=== PATIENT | female | born 1970 | race Two or more races ===

== ENCOUNTER 2016-07-15 10:18 | Emergency (ER) | payer OTHER ==
[2016-07-15 10:35] VITALS: BP 164/84
[2016-07-15] MEDS ORDERED: Ondansetron ODT TAB* 4 MG PO ONE (11:15)
--- NOTE | 2016-07-15 13:24 | UC ---
Patsy Morales Rebecca, scribed for Juliet Curry MD on 07/15/16 at 1042 . Back Pain HPI - HPI Summary HPI Summary: Pt is a 45 y/o F who presents to [facility] c/o back pain. Pain began suddenly this morning upon waking up and has been constant since onset. Pain is in the R flank with radiation to the pelvic region. Sx are currently severe, ranked 8/10 and characterized as sharp stabbing and spasmodic pain. Sx aggravated by position change and standing, alleviated by nothing. Treated pain with Aleve ( vomited this morning) and 2 Gabapentin which have not changed sx. Has previously tried heating pads, ice and Henry, which did not alleviate sx. Additionally c/o vomiting (3x, secondary to pain), bilateral pedal tingling ( worse on the left), diaphoresis, increased urinary frequency and slight numbness in the inguinal region. Denies bladder or bowel incontinence. Denies fever, chills, rash, rhinorrhea or cough. PMHx herniated discs (2010) treated with [facility]. Current episode is similar to previous pain associated with herniated discs, but without anterior sciatic pain, present previously. PCP is Dr. Ames. Notes that 4 days ago she began using a CPAP machine and back pain seems to be related to increasing use of the machine. Recent respiratory virus that resolved 2 weeks ago. Allergy to codeine (hives). - History of Current Complaint Chief Complaint: UCBackPain Stated Complaint: ADB PAIN Time Seen by Provider: 07/15/16 10:30 Hx Obtained From: Patient Hx Last Menstrual Period: 07/13/16 Onset/Duration: Sudden Onset, Still Present Timing: Constant Severity Initially: Severe Severity Currently: Severe Pain Intensity: 8 Pain Scale Used: 0-10 Numeric Back Pain: Is Discrete @ - R flank, Radiates To - pelvis Character: Sharp, Spasmodic Aggravating: Movement Alleviating: Nothing Associated Signs And Symptoms: Positive: Numbness - Mild inguinal numbness, Tingling - Bilateral pedal tingling, Other - Vomiting (3x), diaphoresis, increased urinary frequency; Denies chills, rhinorrhea, rash, cough,. Negative : Fever, Bladder Incontinence, Bowel Incontinence Related History: Similar Episode Dx As - Herniated discs (2010) - Allergies/Home Medications Allergies/Adverse Reactions: Allergies Allergy/AdvReac Type Severity Reaction Status Date / Time Codeine Allergy Hives Verified 07/15/16 10:25 Home Medications: Home Medications Gabapentin CAP(*) [Neurontin 100 mg CAP(*)] 200 mg 07/15/16 [History] Naproxen Sodium-Diphenhydramin [Aleve Pm 220-25 mg] 07/15/16 [History] Venlafaxine CAP (NF) [Effexor CAP (NF)] 07/15/16 [History] PMH/Surg Hx/FS Hx/Imm Hx - Additional Past Medical History Additional PMH: 2 Herniated discs (2010) Cancer History Of: Denies: Breast Cancer - Surgical History Surgical History: None - Social History Alcohol Use: Occasionally Substance Use Type: None Smoking Status (MU): Light Every Day Tobacco Smoker Review of Systems Constitutional: Other - Diaphoresis Skin: Negative Eyes: Negative ENT: Negative Respiratory: Negative Cardiovascular: Negative Gastrointestinal: Vomiting - 3x Genitourinary: Frequency Motor: Negative Neurovascular: Negative Musculoskeletal: Arthralgia - see HPI Neurological: Numbness - Mild inguinal numbness, Other - Bilateral pedal tingling Psychological: Negative All Other Systems Reviewed And Are Negative: Yes - Comments Additional Review of Systems Comments: See HPI Physical Exam Triage Information Reviewed: Yes Appearance: Well-Nourished Vital Signs: Initial Vital Signs Temp 98.1 F 07/15/16 10:26 Pulse 78 07/15/16 10:26 Resp 18 07/15/16 10:26 BP 164/84 07/15/16 10:26 Pulse Ox 99 07/15/16 10:26 Vital Signs Reviewed: Yes Eye Exam: Normal ENT Exam: Normal Respiratory Exam: Normal Respiratory: Positive: Chest non-tender, Lungs clear, Normal breath sounds, No respiratory distress, No accessory muscle use Cardiovascular Exam: Normal Cardiovascular: Positive: RRR, No Murmur, Pulses Normal, Brisk Capillary Refill Abdominal Exam: Normal Abdomen Description: Positive: Nontender, No Organomegaly, Soft Bowel Sounds: Positive: Present Musculoskeletal Exam: Normal Musculoskeletal: Positive: Strength Intact Neurological Exam: Normal - Nonfocal, grossly intact Psychological Exam: Normal - COnversing easily and appropriately Skin Exam: Normal Skin: Negative: rashes Back Pain Course/Dx - Course Course Of Treatment: Pain progressively worse during the course of her time in the [facility]. Unable to sit or lie down 2/2 pain. Pain is radiating to perineum, dysesthetic vaginal area, subj ok perianal. No b/b leak. Pt attempted to stand and pain suddenly worsened significantly. I spoke with Gideon Linares, [facility] (ED). At first Ms. Rahman was going to go to the ED via pov (friend), but after pain become completely debilitating, she wisely accepted the recommendation of EMS transport. Zofran ODT administered here x 1. [place] was planned, but then allergy (hives) to codeine was reviewed with pt - no known hx of whether or not opiates have resulted in problems. As such, in order to avoid an acute allergic reaction en route to ED, norco was held. EMS here and ready to go. Further analgesic can be considered in ED. Reviewed urine dip ( results available s/p pt's departure), this will be reviewed in ED. SG elevated , + blood (might be just finishing period (?) per pt) - see report for details. I have reviewed previous MRI report from May 2011 (in [facility]). MRI impression: L4-5 central disk herniation producing a severe central spinal canal stenosis with encroachment on the lateral recesses and compression of the L5 nerve roots. Considered multiple etiologies of acute back and abd pain. Include but not limited to: Herniated disc / disc compression. Renal etiology. Vacsular. Other. Questions answered to the best of my ability. - Differential Dx/Diagnosis Provider Diagnoses: Acute severe back and abd pain Discharge - Discharge Plan Condition: Guarded Disposition: TRANS HIGHER LVL OF CARE FAC Referrals: Som Ames MD [Primary Care Provider] - The documentation as recorded by the Patsy booth Rebecca accurately reflects the service I personally performed and the decisions made by me, Juliet Curry MD.
== END 2016-07-15 11:48 | disposition short-term general hospital (02) ==
LOC: UCEAST 10:18
DX: M54.9 Dorsalgia, unspecified (principal); R10.9 Unspecified abdominal pain; F17.210 Nicotine dependence, cigarettes, uncomplicated; Z88.5 Allergy status to narcotic agent
CPT/HCPCS: 81003; 84702; 99213; A9270-GY; G0463

== ENCOUNTER 2016-07-15 11:52 | Emergency (ER) | payer OTHER ==
[2016-07-15] MEDS ORDERED: Ketorolac INJ* 30 MG/ML 1 ML VIAL IV ONE (12:13)
[2016-07-15] MEDS ORDERED: NS 0.9% 1000 ML* 1,000 ML IV ONE ×2 (12:13→13:11)
[2016-07-15] MEDS ORDERED: Ondansetron INJ* 2 MG/ML VIAL IV ONE (12:13)
[2016-07-15 12:34] LABS: Hematocrit 40 % (35-47); Hemoglobin 13.2 g/dl (12.0-16.0); Mean Corpuscular HGB Conc 33 g/dl (31-36); Mean Corpuscular Hemoglobin 29 pg (27-31); Mean Corpuscular Volume 87 fL (80-97); Mean Platelet Volume 9 um3 (7.4-10.4); Red Blood Count 4.55 10^6/ul (4.0-5.4); Red Cell Distribution Width 13 % (10.5-15); White Blood Count 12.9 10^3/ul (3.5-10.8)
[2016-07-15 12:51] LABS: ALT 19 U/L (7-52); AST 14 U/L (13-39); Albumin 4.1 g/dL (3.2-5.2); Alkaline Phosphatase 52 U/L (34-104); Anion Gap 7 mmol/L (2-11); BUN/Creatinine Ratio 19.7 (8-20); Blood Urea Nitrogen 23 mg/dL (6-24); C Reactive Protein < 1.00 mg/L (< 5.00); CO2 Carbon Dioxide 25 mmol/L (22-32); Chloride 105 mmol/L (101-111); EGFR African American 63.8 (>60); EGFR Non-African American 49.6 (>60); Globulin 3.1 g/dL (2-4); Glucose 121 mg/dL (70-100); Lipase 29 U/L (11.0-82.0); Sodium 137 mmol/L (133-145); Total Protein 7.2 g/dL (6.4-8.9)
[2016-07-15] MEDS ORDERED: HYDROmorphone INJ* 1 MG/ML CARPUJECT SYRINGE IV ONE (13:10)
--- NOTE | 2016-07-15 14:29 | RAD ---
CLINICAL HISTORY: Right flank pain COMPARISON: None TECHNIQUE: Noncontrast CT examination of the abdomen and pelvis from the lung bases through the initial tuberosities. FINDINGS: VISUALIZED LUNG BASES: The visualized lung bases are grossly clear. There is no pleural effusion. ABDOMEN AND PELVIS: Evaluation of the solid organs and vasculature is limited without intravenous contrast. There is a small hiatal hernia. The liver, spleen, pancreas and adrenal glands are grossly normal in appearance. The gallbladder is normal. There is a nonobstructing punctate calcification at the mid-level left kidney (image 68). Otherwise the left kidney is normal in appearance without focal mass, calcification or signs of hydronephrosis. There is a moderate degree of right-sided hydroureter nephrosis with a mild degree of perinephric stranding. At the distal right ureter there is a 2 mm calcification (image 155). No calcifications are identified within the urinary bladder lumen. The small and large bowel are not distended.The patient's normal appendix is identified in the right lower quadrant measuring 6 mm in width with gas in the lumen (coronal image 62). There is no gross retroperitoneal or mesenteric lymphadenopathy. The pelvic viscera is normal in appearance. The abdominal aorta and iliac arteries are normal in course and diameter. Degenerative changes include multilevel loss of intervertebral disc height involving the lower thoracic and lumbar spine.There are no sinister bone lesions. IMPRESSION: 1. In the distal right ureter there is a 2 mm calcification just proximal to the ureterovesical junction with moderate ipsilateral hydroureter nephrosis and right perinephric stranding. 2. Additional chronic and degenerative changes noted in the body of the report unlikely to be directly related to the patient's current presentation.
[2016-07-15 14:37] LABS: Urine Bacteria 1+ (Absent); Urine Bilirubin Negative (Negative); Urine Glucose Negative (Negative); Urine Nitrite Negative (Negative)
[2016-07-15] MEDS ORDERED: Tamsulosin CAP* 0.4 MG PO ONE (15:04)
--- NOTE | 2016-07-15 15:05 | ED ---
Avery Morales Michael, scribed for Jodi Kate MD on 07/15/16 at 1225 . Back Pain - HPI Summary HPI Summary: 45 y/o female was referred to the ED by [facility] presenting with right back pain. The pt reports that she woke up with the pain this morning at 0730. She describes the pain as sharp and states the pain is a 7-9 out of 10 on a pain assessment scale. The pain is aggravated with movement. The pt also c/o right sided abd pain and 3 episodes of vomiting. She denies dysuria and a rash. The PMHx is significant for a herniated disk in 2011. - History of Current Complaint Chief Complaint: EDBackInjuryPain Stated Complaint: BACK PAIN Time Seen by Provider: 07/15/16 12:00 Hx Obtained From: Patient, EMS, Medical Records Hx Last Menstrual Period: 07/13/16 Onset/Duration: Sudden Onset, Still Present Onset/Duration: Started Hours Ago, Still Present Timing: Constant Back Pain Location: Is Discrete @ - right sided back pain Severity Initially: Moderate Severity Currently: Moderate Pain Intensity: 8 Pain Scale Used: 0-10 Numeric Character: Sharp Aggravating Symptom(s): Movement Alleviating Symptom(s): Nothing Associated Signs And Symptoms: Positive: Negative - rash and dysuria, Abdominal Pain, Other - back pain. vomiting. - Allergies/Home Medications Allergies/Adverse Reactions: Allergies Allergy/AdvReac Type Severity Reaction Status Date / Time Codeine Allergy Hives Verified 07/15/16 10:25 PMH/Surg Hx/FS Hx/Imm Hx Musculoskeletal History: Reports: Hx Back Problems - herniated disk - Cancer History Hx Chemotherapy: No Hx Radiation Therapy: No Infectious Disease History: No Infectious Disease History: Denies: Traveled Outside the [place] in Last 30 Days - Family History Known Family History: Positive: None Family History: no breast cancer - Social History Occupation: Student Lives: With Family Alcohol Use: Occasionally Substance Use Type: Reports: None Smoking Status (MU): Light Every Day Tobacco Smoker Review of Systems Negative: Fever Positive: Abdominal Pain, Vomiting Negative: dysuria Positive: Other - back pain Negative: Rash All Other Systems Reviewed And Are Negative: Yes Physical Exam Triage Information Reviewed: Yes Vital Signs On Initial Exam: Initial Vitals Temp Pulse Resp BP Pulse Ox 97.8 F 72 16 160/89 98 07/15/16 12:02 07/15/16 12:02 07/15/16 12:02 07/15/16 12:02 07/15/16 12:02 Vital Signs Reviewed: Yes Appearance: Positive: Well-Appearing, Pain Distress Skin: Positive: Warm, Skin Color Reflects Adequate Perfusion, Dry Eyes: Positive: EOMI, MARIO ENT: Positive: Pharynx normal, TMs normal Neck: Positive: Supple, Nontender Respiratory/Lung Sounds: Positive: Clear to Auscultation, Breath Sounds Present. Negative: Rales, Rhonchi, Wheezes Cardiovascular: Positive: RRR, Other - no gallops. Negative: Murmur, Rub Abdomen Description: Positive: Nontender - abd pain-diffuse, Soft, Other: - no rebound. Negative: Guarding Bowel Sounds: Positive: Present Musculoskeletal: Positive: Pain @ - right flank tenderness-mild. Negative: Edema Left, Edema Right Neurological: Positive: Sensory/Motor Intact, Alert, Oriented to Person Place, Time, CN Intact II-III Psychiatric: Positive: Affect/Mood Appropriate Diagnostics - Vital Signs Vital Signs Temp Pulse Resp BP Pulse Ox 07/15/16 12:02 97.8 F 72 16 160/89 98 - Laboratory Lab Results: Lab Results 07/15/16 07/15/16 07/15/16 Range/Units 12:20 12:20 12:20 WBC 12.9 H (3.5-10.8) 10^3/ul RBC 4.55 (4.0-5.4) 10^6/ul Hgb 13.2 (12.0-16.0) g/dl Hct 40 (35-47) % MCV 87 (80-97) fL MCH 29 (27-31) pg MCHC 33 (31-36) g/dl RDW 13 (10.5-15) % Plt Count 289 (150-450) 10^3/ul MPV 9 (7.4-10.4) um3 Neut % (Auto) 80.5 (38-83) % Lymph % (Auto) 12.8 L (25-47) % Pickett % (Auto) 5.5 (1-9) % Eos % (Auto) 0.7 (0-6) % Baso % (Auto) 0.5 (0-2) % Absolute Neuts (auto) 10.4 H (1.5-7.7) 10^3/ul Absolute Lymphs (auto) 1.7 (1.0-4.8) 10^3/ul Absolute Monos (auto) 0.7 (0-0.8) 10^3/ul Absolute Eos (auto) 0.1 (0-0.6) 10^3/ul Absolute Basos (auto) 0.1 (0-0.2) 10^3/ul Absolute Nucleated RBC 0.01 10^3/ul Nucleated RBC % 0.1 Sodium 137 (133-145) mmol/L Potassium 4.0 (3.5-5.0) mmol/L Chloride 105 (101-111) mmol/L Carbon Dioxide 25 (22-32) mmol/L Anion Gap 7 (2-11) mmol/L BUN 23 (6-24) mg/dL Creatinine 1.17 H (0.51-0.95) mg/dL Est GFR ( Amer) 63.8 (>60) Est GFR (Non-Af Amer) 49.6 (>60) BUN/Creatinine Ratio 19.7 (8-20) Glucose 121 H (70-100) mg/dL Lactic Acid 1.2 (0.5-2.0) mmol/L Calcium 9.0 (8.6-10.3) mg/dL Total Bilirubin 0.30 (0.2-1.0) mg/dL AST 14 (13-39) U/L ALT 19 (7-52) U/L Alkaline Phosphatase 52 (34-104) U/L C-Reactive Protein < 1.00 (< 5.00) mg/L Total Protein 7.2 (6.4-8.9) g/dL Albumin 4.1 (3.2-5.2) g/dL Globulin 3.1 (2-4) g/dL Albumin/Globulin Ratio 1.3 (1-3) Lipase 29 (11.0-82.0) U/L Beta HCG, Quant 0.92 mIU/mL Urine Color Urine Appearance Urine pH (5-9) Ur Specific [place] (1.010-1.030) Urine Protein (Negative) Urine Ketones (Negative) Urine Blood (Negative) Urine Nitrate (Negative) Urine Bilirubin (Negative) Urine Urobilinogen (Negative) Ur Leukocyte Esterase (Negative) Urine WBC (Auto) (Absent) Urine RBC (Auto) (Absent) Ur Squamous Epith Cells (Absent) Urine Bacteria (Absent) Urine Glucose (Negative) 07/15/16 Range/Units 14:12 WBC (3.5-10.8) 10^3/ul RBC (4.0-5.4) 10^6/ul Hgb (12.0-16.0) g/dl Hct (35-47) % MCV (80-97) fL MCH (27-31) pg MCHC (31-36) g/dl RDW (10.5-15) % Plt Count (150-450) 10^3/ul MPV (7.4-10.4) um3 Neut % (Auto) (38-83) % Lymph % (Auto) (25-47) % Pickett % (Auto) (1-9) % Eos % (Auto) (0-6) % Baso % (Auto) (0-2) % Absolute Neuts (auto) (1.5-7.7) 10^3/ul Absolute Lymphs (auto) (1.0-4.8) 10^3/ul Absolute Monos (auto) (0-0.8) 10^3/ul Absolute Eos (auto) (0-0.6) 10^3/ul Absolute Basos (auto) (0-0.2) 10^3/ul Absolute Nucleated RBC 10^3/ul Nucleated RBC % Sodium (133-145) mmol/L Potassium (3.5-5.0) mmol/L Chloride (101-111) mmol/L Carbon Dioxide (22-32) mmol/L Anion Gap (2-11) mmol/L BUN (6-24) mg/dL Creatinine (0.51-0.95) mg/dL Est GFR ( Amer) (>60) Est GFR (Non-Af Amer) (>60) BUN/Creatinine Ratio (8-20) Glucose (70-100) mg/dL Lactic Acid (0.5-2.0) mmol/L Calcium (8.6-10.3) mg/dL Total Bilirubin (0.2-1.0) mg/dL AST (13-39) U/L ALT (7-52) U/L Alkaline Phosphatase (34-104) U/L C-Reactive Protein (< 5.00) mg/L Total Protein (6.4-8.9) g/dL Albumin (3.2-5.2) g/dL Globulin (2-4) g/dL Albumin/Globulin Ratio (1-3) Lipase (11.0-82.0) U/L Beta HCG, Quant mIU/mL Urine Color Yellow Urine Appearance Cloudy Urine pH 5.0 (5-9) Ur Specific [place] 1.025 (1.010-1.030) Urine Protein Negative (Negative) Urine Ketones Negative (Negative) Urine Blood 3+ H (Negative) Urine Nitrate Negative (Negative) Urine Bilirubin Negative (Negative) Urine Urobilinogen Negative (Negative) Ur Leukocyte Esterase Negative (Negative) Urine WBC (Auto) Absent (Absent) Urine RBC (Auto) 2+(6-10/hpf) H (Absent) Ur Squamous Epith Cells Present H (Absent) Urine Bacteria 1+ H (Absent) Urine Glucose Negative (Negative) Result Diagrams: 07/15/16 12:20 07/15/16 12:20 Lab Statement: Any lab studies that have been ordered have been reviewed, and results considered in the medical decision making process. - CT CT ABD/PEL CT Interpretation: Positive (See Comments) - In the distal right ureter there is a 2 mm calcification just proximal to the ureterovesical junction with moderate ipsilateral hydroureter nephrosis and right perinephric stranding. 2. Additional chronic and degenerative changes noted in the body of the report unlikely to be directly related to the patient's current presentation. CT Interpretation Completed By: Radiologist Back Pain Course/Dx - Course Course Of Treatment: 45 yo female with 2mm right ureteral stone - Diagnoses Provider Diagnoses: Kidney stone Discharge - Discharge Plan Condition: Stable Disposition: HOME Prescriptions: Tamsulosin CAP* [Flomax CAP*] 0.4 mg PO DAILY #6 cap oxyCODONE/Acetamin 5/325 MG* [Percocet 5/325 TAB*] 1 tab PO Q8H PRN #14 tab MDD 3 PRN Reason: Pain Patient Education Materials: Kidney Stones (ED) Additional Instructions: Please return to the ED if your symptoms worsen. The documentation as recorded by the Avery booth Michael accurately reflects the service I personally performed and the decisions made by , Jodi Kate MD.
[2016-07-15 15:26] VITALS: BP 146/69
== END 2016-07-15 15:25 | disposition home or self-care (01) ==
LOC: ED 11:52
DX: N20.0 Calculus of kidney (principal); M54.9 Dorsalgia, unspecified; R10.9 Unspecified abdominal pain; R11.10 Vomiting, unspecified; F17.210 Nicotine dependence, cigarettes, uncomplicated
CPT/HCPCS: 36415; 74176; 80053; 81003; 81015; 83605; 83690; 84702; 85025; 86140; 87086; 96374; 96375; 99283; J1170; J1885; J2405